=== PATIENT | female | born 1970 | race American Indian/Alaskan Native ===

== ENCOUNTER 2019-03-13 09:15 | Day surgery (SDC) | payer OTHER ==
[2019-03-13] MEDS ORDERED: LIDOCAINE MPF (2%) 20 MG/1 ML VIAL 5 ML ONE (10:00)
--- NOTE | 2019-03-13 10:45 | Anesthesia Day of Surgery ---
Anesthesia Day of Surgery - Day of Surgery Patient Examined: Yes Patient H&P Reviewed: Yes Patient is NPO: Yes
--- NOTE | 2019-03-13 10:45 | Anesthesia Consultation ---
Anesthesia Consult and Med Hx Date of service: 03/13/19 - Airway Anesthetic Teeth Evaluation: Good ROM Head & Neck: Adequate Mental/Hyoid Distance: Adequate Mallampati Class: Class I Intubation Access Assessment: Good - Pulmonary Exam CTA: Yes - Cardiac Exam Cardiac Exam: RRR - Pre-Operative Health Status ASA Pre-Surgery Classification: ASA1 Proposed Anesthetic Plan: MAC - Pulmonary Hx Smoking: No Hx Respiratory Symptoms: No - Cardiovascular System Hx Hypertension: No Hx Cardia Arrhythmia: No - Central Nervous System Hx Neuromuscular Disorder: No Hx Psychiatric Problems: No - Gastrointestinal Hx Gastroesophageal Reflux Disease: No - Endocrine Hx Renal Disease: No - Hematic Hx Anemia: No - Other Systems Hx Alcohol Use: No Hx Substance Use: No - Additional Comments Anesthesia Medical History Comments: Patient denies previous anesthesia complica tions
[2019-03-13] MEDS ORDERED: PROPOFOL 200 MG/20 ML VIAL IV ONE ×2 (11:46)
[2019-03-13] MEDS: SODIUM CHLORIDE 0.9% 1000 ML 1,000 ML IV SCH (11:52)
--- NOTE | 2019-03-13 12:18 | Short Stay Summary ---
Short Stay Documentation Date of service: 03/13/19 Narrative H&P: Patient is a 49 yo aaf who presents for screening colonoscopy. No new gi complaints or changes from clinic note. - History H&P: obtained from office Past Medical History: other (see clinic note) Past Surgical History: Other (see clinic note) Social history: no significant social history - Allergies and Medications Current Medications: Allergies No Known Allergies Allergy (Unverified 03/12/19 13:03) Active Medications Sodium Chloride (Nacl 0.9% 1000 Ml) 1,000 mls @ 50 mls/hr IV DIRECT AVANI Last Admin: 03/13/19 11:52 Dose: 50 mls/hr Documented by: - Physical exam General appearance: no acute distress Lungs: Clear to auscultation Heart: Regular rate Gastrointestinal: normal - Brief post op/procedure progress note Date of procedure: 03/13/19 Pre-op diagnosis: screening for colorectal cancer Post-op diagnosis: same (normal colonoscopy) Procedure: Colonoscopy Anesthesia: MAC Findings: Normal colonoscopy Surgeon: GAYE HEATH Estimated blood loss: none Pathology: none Condition: stable - Disposition Condition at discharge: Good Disposition: DC-01 TO HOME OR SELFCARE Short Stay Discharge Plan Follow up with: PRIMARY CARE, [Primary Care Provider] - 7 Days
--- NOTE | 2019-03-13 12:19 | Operative Report ---
Operative Report Operative Report: Colonoscopy Procedure Note Date of procedure: 03/13/2019 Endoscopist: Stephan Donis Pre-op diagnosis: Screening for colorectal cancer Post-op diagnosis: Normal colonoscopy Anesthesia: MAC Complications: No immediate complications Estimated blood loss: None Procedure: After consent was obtained, the patient was placed in the left lateral decubitus position. The olympus colonoscope was inserted into the patient's rectum under direct vision, and advanced to the cecum without difficulty. The patient tolerated the procedure well. The views of the mucosa were good. The quality of prep was good. The patient's vital signs were monitored continuously throughout the procedure. Findings: The entire examined colon appeared normal. Impression: 1. Normal colonoscopy Recommendations: -repeat colonoscopy in 10 years for screening purposes
[2019-03-13 13:24] VITALS: BP 99/66
== END 2019-03-13 09:16 | disposition home or self-care (01) ==
LOC: GIO 09:15
PROVIDERS: ATTEND Internal Medicine Gastroenterology
DX: Z12.11 Encounter for screening for malignant neoplasm of colon (principal); Z79.899 Other long term (current) drug therapy; Z90.710 Acquired absence of both cervix and uterus; Z98.890 Other specified postprocedural states
CPT/HCPCS: 45378; J2704; J7030